=== PATIENT | female | born 1995 | race Caucasian/White ===

== ENCOUNTER 2018-12-26 20:38 | Emergency (ER) | payer MEDICAID, OTHER ==
[~2018-12-26] VITALS: Ht 157.5 cm; Wt 52.6 kg
[~2018-12-26 20:38] MED LIST: HYDR-4383 PO; ONDA4TAB6 PO
[2018-12-26 20:40] VITALS: BP 171/95
== END 2018-12-26 22:18 | disposition home or self-care (01) ==
LOC: ER 20:38
DX: S40.211A Abrasion of right shoulder, initial encounter (principal); S80.212A Abrasion, left knee, initial encounter; Z02.89 Encounter for other administrative examinations; Z79.899 Other long term (current) drug therapy; W19.XXXA Unspecified fall, initial encounter; Y93.89 Activity, other specified; Y92.89 Other specified places as the place of occurrence of the external cause; Y99.8 Other external cause status
CPT/HCPCS: 99284

== ENCOUNTER 2024-05-08 10:57 | Outpatient (CLI) | payer MEDICAID | END 2024-05-08 23:59 | disposition home or self-care (01) | LOC: LAB 10:57 → LAB SPEC 23:59 | PROVIDERS: ATTEND Surgery | DX: C11.0 Malignant neoplasm of superior wall of nasopharynx (principal) | CPT/HCPCS: 87070; 87075 ==